=== PATIENT | female | born 1930 | race Caucasian/White ===

== ENCOUNTER 2017-02-11 12:28 | Emergency (ER) | payer MEDICARE, OTHER ==
[2017-02-11] MEDS ORDERED: HYDROCODONE/ACETAMINOPHEN 5-325 MG TABLET PO ONE (13:11)
--- NOTE | 2017-02-11 13:15 | ER Document Report ---
ED Medical Screen (RME) - General Chief Complaint: Rectal Bleeding Stated Complaint: RECTAL BLEEDING Mode of Arrival: Ambulatory Information source: Patient Notes: 86-year-old female history of colon issues with recent stomach resection secondary to cancer presents with complaints of right lower right upper quadrant abdominal pain associated with bright red blood. Patient notes symptoms have been ongoing for 3 days Denies any rectal pain I have greeted and performed a rapid initial assessment of this patient. A comprehensive ED assessment and evaluation of the patient, analysis of test results and completion of the medical decision making process will be conducted by additional ED providers. PHYSICAL EXAMINATION: GENERAL: Well-appearing, well-nourished and in no acute distress. HEAD: Atraumatic, normocephalic. EYES: Pupils equal round extraocular movements intact, conjunctiva are normal. ENT: Nares patent NECK: Normal range of motion LUNGS: No respiratory distress Musculoskeletal: Normal range of motion abdomen soft mild tenderness right lower quadrant NEUROLOGICAL: Normal speech, normal gait. PSYCH: Normal mood, normal affect. SKIN: Warm, Dry, normal turgor, no rashes or lesions noted. TRAVEL OUTSIDE OF THE [place] IN LAST 30 DAYS: No - Related Data Allergies/Adverse Reactions: prednisone Allergy (Severe, Verified 02/11/17 12:57) TOO MUCH MESSED UP HEART aspirin Allergy (Intermediate, Verified 02/11/17 12:57) "stomach ulcers" morphine [Morphine] Allergy (Mild, Verified 02/11/17 12:57) VOMITING Sulfa (Sulfonamide Antibiotics) Allergy (Mild, Verified 02/11/17 12:57) Swelling diltiazem [From Cardizem] Adverse Reaction (Intermediate, Verified 02/11/17 12: 57) MADE FEEL BAD Past Medical History - Past Medical History Cardiac Medical History: Reports: Hx Hypercholesterolemia Denies: Hx Coronary Artery Disease, Hx Heart Attack, Hx Hypertension Pulmonary Medical History: Reports: Hx Asthma, Hx Bronchitis, Hx COPD, Hx Pneumonia Denies: Hx Tuberculosis Neurological Medical History: Denies: Hx Cerebrovascular Accident, Hx Seizures Renal/ Medical History: Denies: Hx Peritoneal Dialysis GI Medical History: Reports: Hx Ulcer - duodenal ulcer. 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 Denies: Hx Bowel Surgery, Hx Section, Hx Colostomy, Hx Coronary Artery Bypass Graft, Hx Gastric Bypass Surgery, Hx Herniorrhaphy, Hx Mastectomy, Hx Open Heart Surgery, Hx Pacemaker, Hx Tonsillectomy, Hx Tubal Ligation - Immunizations Hx Diphtheria, Pertussis, Tetanus Vaccination: No - unknown Physical Exam - Vital signs Vitals: Temp Pulse Resp BP Pulse Ox 97.7 F 83 20 153/55 H 94 02/11/17 12:32 02/11/17 12:32 02/11/17 12:32 02/11/17 12:32 02/11/17 12:32 Course - Vital Signs Vital signs: Temp Pulse Resp BP Pulse Ox 97.7 F 83 20 153/55 H 94 02/11/17 12:32 02/11/17 12:32 02/11/17 12:32 02/11/17 12:32 02/11/17 12:32
[2017-02-11 14:56] LABS: ABSOLUTE EOSINOPHILS # (AUTO) 0.1 10^3/uL (0.0-0.6); ABSOLUTE LYMPHOCYTES (AUTO) 1.2 10^3/uL (0.5-4.7); ABSOLUTE MONOCYTES (AUTO) 0.7 10^3/uL (0.1-1.4); ABSOLUTE NEUT (AUTO) 3.7 10^3/uL (1.7-8.2); BASOPHILS % (AUTO) 0.4 % (0-2); EOSINOPHILS % (AUTO) 1.6 % (0-6); HEMATOCRIT 35.1 % (36.0-47.0); HGB HCT DIFFERENCE 0.9; LYMPHOCYTES % (AUTO) 20.3 % (13-45); MEAN CORPUSCULAR HEMOGLOBIN 34.7 pg (27.0-33.4); MEAN CORPUSCULAR HGB CONC 34.2 g/dL (32.0-36.0); MEAN CORPUSCULAR VOLUME 101 fl (80-97); MONOCYTES % (AUTO) 12.4 % (3-13); RED BLOOD COUNT 3.46 10^6/uL (3.72-5.28); RED CELL DISTRIBUTION WIDTH 15.9 % (11.5-14.0); SEGMENTED NEUTROPHILS % (AUTO) 65.3 % (42-78); WHITE BLOOD COUNT 5.7 10^3/uL (4.0-10.5)
[2017-02-11 15:18] LABS: ALANINE AMINOTRANSFERASE 34 U/L (9-52); ALKALINE PHOSPHATASE 134 U/L (38-126); ANION GAP 13 (5-19); ASPARTATE AMINO TRANSFERASE 36 U/L (14-36); BILIRUBIN,DIRECT 0.4 mg/dL (0.0-0.4); BILIRUBIN,TOTAL 1.8 mg/dL (0.2-1.3); BLOOD UREA NITROGEN 16 mg/dL (7-20); CALCIUM 9.7 mg/dL (8.4-10.2); CARBON DIOXIDE 25 mmol/L (22-30); CHLORIDE 102 mmol/L (98-107); CREATININE RESULT 0.71 mg/dL (0.52-1.25); GLUCOSE 99 mg/dL (75-110); POTASSIUM 4.3 mmol/L (3.6-5.0); SODIUM 140.1 mmol/L (137-145); TOTAL PROTEIN 7.8 g/dL (6.3-8.2)
--- NOTE | 2017-02-11 16:11 | ER Document Report ---
ED GI Bleed / Rectal Pain - General Chief Complaint: Rectal Bleeding Stated Complaint: RECTAL BLEEDING Mode of Arrival: Ambulatory Notes: Patient is an 86-year-old female presents emergency Department complaining of right abdominal pain with associated diarrhea and rectal bleeding. Onset has been the past couple of days that she has history of irritable bowel disease flareups on and off every couple months. Patient states that she has a history of irritable bowel disease predominantly with diarrhea she's been taking Bentyl at home. She states that she's been following with Dr. Berry and is due for colonoscopy this past week but canceled it due to nausea and she didn't want to take the prep. She is yet to follow up with him. She denies any weakness, near -syncope, syncope. She denies any dark tarry stools. States that she has blood streaked bowel movements but no evidence of clots. Any nausea or vomiting. GI is Dr. Berry PCP is Dr. Rowell for rheumatology, Dr. Barber for oncology Past medical history significant for hyperlipidemia, asthma, COPD, history of duodenal ulcer, rheumatoid arthritis, fibromyalgia, irritable bowel disease, atrial fibrillation with pacemaker Past surgical history significant for appendectomy, lumpectomy 2, cholecystectomy, hysterectomy, gastric resection for gastric CA on March or of this year in [facility] Social history denies any tobacco, alcohol or drug use. TRAVEL OUTSIDE OF THE [place] IN LAST 30 DAYS: No - Related Data Allergies/Adverse Reactions: prednisone Allergy (Severe, Verified 02/11/17 12:57) TOO MUCH MESSED UP HEART aspirin Allergy (Intermediate, Verified 02/11/17 12:57) "stomach ulcers" morphine [Morphine] Allergy (Mild, Verified 02/11/17 12:57) VOMITING Sulfa (Sulfonamide Antibiotics) Allergy (Mild, Verified 02/11/17 12:57) Swelling diltiazem [From Cardizem] Adverse Reaction (Intermediate, Verified 02/11/17 12: 57) MADE FEEL BAD Past Medical History - General Information source: Patient - Social History Smoking Status: Never Smoker Chew tobacco use (# tins/day): No Frequency of alcohol use: None Drug Abuse: None Family History: None Patient has suicidal ideation: No Patient has homicidal ideation: No - Past Medical History Cardiac Medical History: Reports: Hx Hypercholesterolemia Denies: Hx Coronary Artery Disease, Hx Heart Attack, Hx Hypertension Pulmonary Medical History: Reports: Hx Asthma, Hx Bronchitis, Hx COPD, Hx Pneumonia Denies: Hx Tuberculosis Neurological Medical History: Denies: Hx Cerebrovascular Accident, Hx Seizures Renal/ Medical History: Denies: Hx Peritoneal Dialysis GI Medical History: Reports: Hx Ulcer - duodenal ulcer. 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 Denies: Hx Bowel Surgery, Hx Section , Hx Colostomy, Hx Coronary Artery Bypass Graft, Hx Gastric Bypass Surgery, Hx Herniorrhaphy, Hx Mastectomy, Hx Open Heart Surgery, Hx Pacemaker, Hx Tonsillectomy, Hx Tubal Ligation - Immunizations Hx Diphtheria, Pertussis, Tetanus Vaccination: No - unknown Hx Pneumococcal Vaccination: 11/16/08 Review of Systems - Review of Systems Constitutional: No symptoms reported EENT: No symptoms reported Cardiovascular: No symptoms reported Respiratory: No symptoms reported Gastrointestinal: See HPI -: Yes All other systems reviewed and negative Physical Exam - Vital signs Vitals: Temp Pulse Resp BP Pulse Ox 97.7 F 83 20 153/55 H 94 02/11/17 12:32 02/11/17 12:32 02/11/17 12:32 02/11/17 12:32 02/11/17 12:32 - Notes Notes: PHYSICAL EXAM GENERAL: Alert, interacts well. HEAD: Normocephalic, atraumatic. EYES: Pupils equal, round, and reactive to light. Extraocular movements intact. ENT: Oral mucosa moist, tongue midline. NECK: Full range of motion. Supple. Trachea midline. LUNGS: Clear to auscultation bilaterally, no wheezes, rales, or rhonchi. No respiratory distress. HEART: Regular rate and rhythm. No murmurs, gallops, or rubs. ABDOMEN: Soft, nondistended, nontender. No guarding, rebound, or rigidity.. Bowel sounds present in all 4 quadrants. Rectal: No evidence of anal fissure, external hemorrhoids. On digital clinic exam no evidence of internal hemorrhoids, blood. EXTREMITIES: Moves all 4 extremities spontaneously. No edema, radial and dorsalis pedis pulses 2/4 bilaterally. No cyanosis. NEUROLOGICAL: Alert and oriented x4. Normal speech. PSYCH: Normal affect, normal mood. SKIN: Warm, dry, normal turgor. No rashes or lesions noted. Course - Re-evaluation Re-evalutation: 02/11/17 16:16 Patient is a 86-year-old female who is hemodynamically stable, no acute distress and afebrile. No evidence of blood loss anemia, leukocytosis on CBC. No evidence of electrode abnormalities, abnormal pancreas, renal, hepatic function. she is tolerating by mouth without any difficulty. Discussed with patient to discharge home and follow-up with Dr. Berry was coming week for her colonoscopy. - Vital Signs Vital signs: Temp Pulse Resp BP Pulse Ox 97.7 F 83 21 H 147/62 H 95 02/11/17 12:32 02/11/17 12:32 02/11/17 15:11 02/11/17 15:11 02/11/17 15:11 - Laboratory Result Diagrams: 02/11/17 14:12 02/11/17 14:12 Laboratory results interpreted by me: 02/11/17 02/11/17 14:12 14:12 RBC 3.46 L Hct 35.1 L MCV 101 H MCH 34.7 H RDW 15.9 H Plt Count 102 L Total Bilirubin 1.8 H Alkaline Phosphatase 134 H Discharge - Discharge Clinical Impression: Irritable bowel disease Qualifiers: Irritable bowel syndrome type: with diarrhea Qualified Code(s): K58.0 - Irritable bowel syndrome with diarrhea Condition: Good Disposition: HOME, SELF-CARE Additional Instructions: you are having an acute flare of your irritable bowel disease. You need to follow up with your multimedia services coordinator for your recommended colonoscopy ABDOMINAL PAIN: There are many causes of abdominal pain. Pain can mean a serious problem requiring surgery (such as appendicitis). It can also be an innocent problem that goes away on its own (such as a viral infection). Often, time must pass to determine the cause of pain. The physician does not feel that hospitalization is necessary, at present. Things may change within the next 24 hours. Call the doctor or come back for re- examination if any problems occur, such as: (1) Pain that becomes more severe, steady, or becomes concentrated in one specific area. Also, pain that is more severe with movement or coughing. (2) Vomiting that persists or becomes more frequent. (3) Blood in the vomitus, urine, or bowel movements. Blood in the stool may have a tarry or black appearance. (4) Shaking chills or fever greater than 100 degrees F. (5) The abdomen becomes more distended or swollen. (6) Bowel movements cease. (7) Failure to improve as expected. NORMAL EXAM AND WORKUP: At this time, your examination and workup show no significant abnormality. No significant abnormal physical findings are noted. All laboratory, EKG, and imaging (x-ray, CT scans, ultrasound) studies that were ordered show no significant abnormality. Although your examination and all studies that were ordered showed no significant abnormal finding, there are no examinations and no studies that are 100% accurate. There is always the possibility that some abnormality could exist and not be detected with physical examination or within the limits and capabilities of laboratory and other studies. You should return or follow up as you were instructed on your visit today for further evaluation if your symptoms do not resolve. ANTISPASMODICS: You have been given a prescription for an antispasmodic medicine. This type of drug is used to decrease cramping and pain in the intestines. It is also used to decrease secretion of internal fluids (such as stomach acid in ulcer disease or pancreatic juice in pancreas disease). This medicine may cause drowsiness, especially with the first dose. Do not operate machinery or drive until all side effects have resolved. Do not combine with alcohol. Other common side effects include dry mouth and eyes. In older persons, antispasmodics can occasionally cause urinary retention, constipation, or trouble focusing the eyes. Glaucoma may be worsened by this medicine. ORAL NARCOTIC MEDICATION: You have been given a prescription for pain control. This medication is a narcotic. It's best taken with food, as nausea can result if taken on an empty stomach. Don't operate machinery or drive within six hours of taking this medication. Do not combine this medicine with alcohol, or with any medication which can cause sedation (such as cold tablets or sleeping pills) unless you get permission from the physician. Narcotics tend to cause constipation. If possible, drink plenty of fluids and eat a diet high in fiber and fruits. Please be aware that prescription narcotics also have the potential for abuse. People become addicted to these medications because of the general sense of wellbeing that they induce. This feeling along with a significant reduction in tension, anxiety, and aggression provides a stimulating seductive quality to these drugs. Once your pain is under control, we encourage you to discard your unused narcotics. FOLLOW-UP CARE: If you have been referred to a physician for follow-up care, call the physician s office for an appointment as you were instructed or within the next two days. If you experience worsening or a significant change in your symptoms, notify the physician immediately or return to the Emergency Department at any time for re-evaluation. Prescriptions: Loperamide HCl [Loperamide] 2 mg PO Q6HP PRN #20 tablet PRN Reason: Ondansetron [Zofran Odt 4 mg Tablet] 1 - 2 tab PO Q4H PRN #15 tab.rapdis PRN Reason: For Nausea/Vomiting Referrals: JOSE LUIS BARBER MD [Primary Care Provider] - Follow up as needed ADISY GRAVES MD [ACTIVE STAFF] - Follow up in 3-5 days
[2017-02-11] MEDS ORDERED: LOPERAMIDE HCL 2 MG CAPSULE PO ONE (16:13)
[2017-02-11 16:52] VITALS: BP 141/64
== END 2017-02-11 16:51 | disposition home or self-care (01) ==
LOC: ER 12:28
DX: K58.0 Irritable bowel syndrome with diarrhea (principal); K62.5 Hemorrhage of anus and rectum; R10.9 Unspecified abdominal pain
CPT/HCPCS: 99283; 86900; 86901; 36415; 86850; 85025; 82272; 80053; A9270

== ENCOUNTER → 2017-02-24 | Outpatient (CLI) | payer MEDICARE, OTHER | LOC: RAD 15:09 | PROVIDERS: ATTEND Specialist | DX: C7A.094 Malignant carcinoid tumor of the foregut, unspecified (principal) | CPT/HCPCS: 78815; A9552 ==

== ENCOUNTER 2017-10-01 12:47 | Inpatient (IN) | payer MEDICARE, OTHER ==
[2017-10-01 14:08] LABS: ABSOLUTE EOSINOPHILS # (AUTO) 0.2 10^3/uL (0.0-0.6); ABSOLUTE LYMPHOCYTES (AUTO) 0.8 10^3/uL (0.5-4.7); ABSOLUTE MONOCYTES (AUTO) 0.6 10^3/uL (0.1-1.4); ABSOLUTE NEUT (AUTO) 3.5 10^3/uL (1.7-8.2); BASOPHILS % (AUTO) 0.8 % (0-2); LYMPHOCYTES % (AUTO) 16.2 % (13-45); MEAN CORPUSCULAR HEMOGLOBIN 36.6 pg (27.0-33.4); MEAN CORPUSCULAR HGB CONC 34.5 g/dL (32.0-36.0); MEAN CORPUSCULAR VOLUME 106 fl (80-97); MONOCYTES % (AUTO) 10.9 % (3-13); RED BLOOD COUNT 2.73 10^6/uL (3.72-5.28); RED CELL DISTRIBUTION WIDTH 14.3 % (11.5-14.0); SEGMENTED NEUTROPHILS % (AUTO) 68.1 % (42-78); WHITE BLOOD COUNT 5.1 10^3/uL (4.0-10.5)
[2017-10-01 14:23] LABS: ALANINE AMINOTRANSFERASE 35 U/L (9-52); ALBUMIN 3.1 g/dL (3.5-5.0); ALKALINE PHOSPHATASE 100 U/L (38-126); ANION GAP 9 (5-19); ASPARTATE AMINO TRANSFERASE 38 U/L (14-36); BILIRUBIN,DIRECT 0.3 mg/dL (0.0-0.4); BILIRUBIN,TOTAL 1.9 mg/dL (0.2-1.3); BLOOD UREA NITROGEN 14 mg/dL (7-20); CALCIUM 8.4 mg/dL (8.4-10.2); CARBON DIOXIDE 24 mmol/L (22-30); CHLORIDE 103 mmol/L (98-107); CREATINE KINASE 156 U/L (30-135); CREATININE RESULT 0.62 mg/dL (0.52-1.25); GLUCOSE 158 mg/dL (75-110); POTASSIUM 3.8 mmol/L (3.6-5.0); SODIUM 136.1 mmol/L (137-145); TOTAL PROTEIN 6.2 g/dL (6.3-8.2)
[2017-10-01 14:35] LABS: CREATINE KINASE MB 1.51 ng/mL (<4.55); TROPONIN I 0.019 ng/mL
--- NOTE | 2017-10-01 14:50 | ER Document Report ---
ED General - General Chief Complaint: General Weakness Stated Complaint: DIZZINESS Time Seen by Provider: 10/01/17 14:14 Mode of Arrival: Ambulatory Information source: Patient Notes: 86-year-old female presents with one-week duration of shortness of breath on exertion. Patient notes that her bilateral lower feet and ankles have been swollen. She denies any chest pain she denies any similar episodes in the past. Patient notes for the past 2-3 years she has been sleeping on 3 pillows at a time. Patient notes she just saw her arborist 11 days prior and was told that everything looks fine. She does have a pacemaker. TRAVEL OUTSIDE OF THE [place] IN LAST 30 DAYS: No - HPI Onset: Last week Onset/Duration: Persistent Quality of pain: No pain Severity: Mild Pain Level: Denies Associated symptoms: Leg swelling, Shortness of breath Exacerbated by: Supine, Walking Relieved by: Denies Similar symptoms previously: No Recently seen / treated by doctor: Yes - Related Data Allergies/Adverse Reactions: prednisone Allergy (Severe, Verified 10/01/17 12:48) TOO MUCH MESSED UP HEART aspirin Allergy (Intermediate, Verified 10/01/17 12:48) "stomach ulcers" morphine [Morphine] Allergy (Mild, Verified 10/01/17 12:48) VOMITING Sulfa (Sulfonamide Antibiotics) Allergy (Mild, Verified 10/01/17 12:48) Swelling diltiazem [From Cardizem] Adverse Reaction (Intermediate, Verified 10/01/17 12: 48) MADE FEEL BAD Home Medications: Current Home Medications Ergocalciferol (Vitamin D2) [Drisdol 50,000 Unit (1.25MG) Capsule] 50,000 unit PO .[id number] 10/01/17 [History] Folic Acid [Folvite 1 mg Tablet] 1 mg PO DAILY 10/01/17 [History] Methotrexate Sodium [Methotrexate] 2.5 mg PO MOTU@1000,1800 10/01/17 [History] Past Medical History - Social History Smoking Status: Never Smoker Cigarette use (# per day): No Chew tobacco use (# tins/day): No Smoking Education Provided: No Frequency of alcohol use: None Drug Abuse: None Family History: None Patient has suicidal ideation: No Patient has homicidal ideation: No - Past Medical History Cardiac Medical History: Reports: Hx Hypercholesterolemia Denies: Hx Coronary Artery Disease, Hx Heart Attack, Hx Hypertension Pulmonary Medical History: Reports: Hx Asthma, Hx Bronchitis, Hx COPD, Hx Pneumonia Denies: Hx Tuberculosis Neurological Medical History: Denies: Hx Cerebrovascular Accident, Hx Seizures Renal/ Medical History: Denies: Hx Peritoneal Dialysis GI Medical History: Reports: Hx Ulcer - duodenal ulcer. 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 Denies: Hx Bowel Surgery, Hx Section , Hx Colostomy, Hx Coronary Artery Bypass Graft, Hx Gastric Bypass Surgery, Hx Herniorrhaphy, Hx Mastectomy, Hx Open Heart Surgery, Hx Pacemaker, Hx Tonsillectomy, Hx Tubal Ligation - Immunizations Hx Diphtheria, Pertussis, Tetanus Vaccination: No - unknown Hx Pneumococcal Vaccination: 11/16/08 Review of Systems - Review of Systems Notes: REVIEW OF SYSTEMS: CONSTITUTIONAL : Denies fever, chills, or sweats. Denies recent illness. EENT: Denies eye, ear, throat, or mouth pain or symptoms. Denies nasal or sinus congestion or discharge. Denies throat, tongue, or mouth swelling or difficulty swallowing. CARDIOVASCULAR: Denies chest pain. Denies palpitations or racing or irregular heart beat. His lower extremity edema RESPIRATORY: Admits shortness of breath GASTROINTESTINAL: Admits to chronic abdominal pain GENITOURINARY: Denies difficulty urinating, painful urination, burning, frequency, blood in urine, or discharge. FEMALE GENITOURINARY: Denies vaginal bleeding, heavy or abnormal periods, irregular periods. Denies vaginal discharge or odor. MUSCULOSKELETAL: Admits bilateral lower extremity edema SKIN: Denies rash, lesions or sores. HEMATOLOGIC : Denies easy bruising or bleeding. LYMPHATIC: Denies swollen, enlarged glands. NEUROLOGICAL: Denies confusion or altered mental status. Denies passing out or loss of consciousness. Denies dizziness or lightheadedness. Denies headache. Denies weakness or paralysis or loss of use of either side. Denies problems with gait or speech. Denies sensory loss, numbness, or tingling. Denies seizures. PSYCHIATRIC: Denies anxiety or stress. Denies depression, suicidal ideation, or homicidal ideation. ALL OTHER SYSTEMS REVIEWED AND NEGATIVE. PHYSICAL EXAMINATION: GENERAL: Well-appearing, well-nourished and in no acute distress. HEAD: Atraumatic, normocephalic. EYES: Pupils equal round and reactive to light, extraocular movements intact, conjunctiva are normal. ENT: Nares patent, oropharynx clear without exudates. Moist mucous membranes. NECK: Normal range of motion, supple without lymphadenopathy LUNGS: Breath sounds clear to auscultation bilaterally and equal. No wheezes rales or rhonchi. HEART: Regular rate and rhythm without murmurs ABDOMEN: Soft, nontender, nondistended abdomen. No guarding, no rebound. No masses appreciated. Female : deferred Musculoskeletal: Bilateral +2 pitting edema of the ankles NEUROLOGICAL: Cranial nerves grossly intact. Normal speech, normal gait. Normal sensory, motor exams PSYCH: Normal mood, normal affect. SKIN: Warm, Dry, normal turgor, no rashes or lesions noted. Dictation was performed using [employer] voice recognition software Physical Exam - Vital signs Vitals: Resp 22 H 10/01/17 13:00 Course - Re-evaluation Re-evalutation: 10/01/17 16:58 Patient's imaging and presentation is consistent with congestive heart failure with fluid overload. She is given Lasix will be admitted given that she becomes hypoxic when she ambulates down to 89%. Patient otherwise is in no distress at rest - Vital Signs Vital signs: Temp Pulse Resp BP Pulse Ox 97.6 F 96 18 150/64 H 95 10/01/17 13:10 10/01/17 13:10 10/01/17 16:33 10/01/17 16:33 10/01/17 16:33 - Laboratory Result Diagrams: 10/01/17 13:51 10/01/17 13:51 Laboratory results interpreted by me: 10/01/17 10/01/17 10/01/17 13:51 13:51 14:53 RBC 2.73 L Hgb 10.0 L Hct 29.0 L MCV 106 H MCH 36.6 H RDW 14.3 H Plt Count 82 L Sodium 136.1 L Glucose 158 H Total Bilirubin 1.9 H AST 38 H Creatine Kinase 156 H Total Protein 6.2 L Albumin 3.1 L Urine Glucose (UA) 50 H Urine Blood SMALL H - Diagnostic Test Radiology reviewed: Image reviewed, Reports reviewed - Fluid overload - EKG Interpretation by Me EKG shows normal: Sinus rhythm, [place], Intervals, QRS Complexes Discharge - Discharge Clinical Impression: Hypoxemia Acute exacerbation of CHF (congestive heart failure) Qualifiers: Congestive heart failure type: combined Qualified Code(s): I50.43 - Acute on chronic combined systolic (congestive) and diastolic (congestive) heart failure Condition: Stable Disposition: ADMITTED OBSERVATION Admitting Provider: Hospitalist Unit Admitted: Telemetry
[2017-10-01 15:14] LABS: APPEARANCE,URINE CLEAR; BILIRUBIN,URINE NEGATIVE (NEGATIVE); GLUCOSE, URINE 50 mg/dL (NEGATIVE); KETONES,URINE NEGATIVE (NEGATIVE); LEUKOCYTE ESTERASE,URINE NEGATIVE (NEGATIVE); NITRITE,URINE NEGATIVE (NEGATIVE); PROTEIN,URINE NEGATIVE (NEGATIVE); URINE SPECIFIC GRAVITY 1.009; UROBILINOGEN,URINE NEGATIVE mg/dL (<2.0)
--- NOTE | 2017-10-01 15:49 | RADIOLOGY REPORT (SQ) ---
EXAM DESCRIPTION: CHEST PA/LAT COMPLETED DATE/TIME: 10/01/2017 3:23 pm REASON FOR STUDY: peripheral edema, sob COMPARISON: PET-CT 02/24/2017 AP chest 02/11/2014 EXAM PARAMETERS: NUMBER OF VIEWS: two views TECHNIQUE: Digital Frontal and Lateral radiographic views of the chest acquired. RADIATION DOSE: NA LIMITATIONS: none FINDINGS: LUNGS AND PLEURA: Pulmonary vascular congestion is present with mild interstitial edema. Trace bilateral pleural effusions. No dense consolidation worrisome for pneumonia. No pneumothorax. MEDIASTINUM AND HILAR STRUCTURES: No masses or contour abnormalities. HEART AND VASCULAR STRUCTURES: Mild cardiomegaly BONES: Osteoporotic, no acute findings HARDWARE: Left-sided dual lead pacemaker OTHER: No other significant finding. IMPRESSION: Fluid overload or congestive failure with pulmonary vascular congestion, interstitial ed hitesh and trace bilateral pleural effusions TECHNICAL DOCUMENTATION: JOB ID: [id number] [employer]- All Rights Reserved
[2017-10-01] MEDS ORDERED: FUROSEMIDE INJ/PF 40 MG/4 ML SDV IV ONE ×2 (15:53→21:45)
[2017-10-01] MEDS ORDERED: IPRATROPIUM/ALBUTEROL 0.5-2.5 MG/3 ML AMPUL NEB PRN (18:02)
[2017-10-01] MEDS ORDERED: ONDANSETRON HCL INJ/PF 4 MG/2 ML SDV IV PRN (18:02)
--- NOTE | 2017-10-01 18:27 | PDOC H&P ---
History of Present Illness Admission Date/PCP: 10/01/17 16:30 JOSE LUIS BARBER MD History of Present Illness: BARTOLO DANIEL is a 86 year old white female with a past medical history significant for rheumatoid arthritis on chronic methotrexate since 1988, atrial fibrillation status post pacemaker placement last seen by Dr. Corona on September 20 who presents to the service with complaints of lower extremity swelling. Patient has had decreased energy over the last 3 days. This is been accompanied by increased ankle swelling. The patient states that she tried elevating her legs and that helped slightly. She also developed shortness of breath with exertion. She denies any chest pain and has 3 pillow orthopnea. She says that she has been sleeping on 3 pillows for years, however. She denies any nausea, vomiting, fever. She states that she last saw Dr. Corona September [address] Corona told her that her heart looked good. It sounds as though she had a pacemaker check at that time. In the ER she had a chest x-ray that showed bilateral pleural effusions. She was given 1 dose of Lasix at 40 mg. BNP was 360. Currently the patient feels occasionally winded just at rest in bed. Past Medical History Cardiac Medical History: Reports: Atrial Fibrillation, Hyperlipidema Pulmonary Medical History: Reports: Asthma, Bronchitis, Chronic Obstructive Pulmonary Disease (COPD), Pneumonia Malignancy History Note: Diagnosis of carcinoid tumor in 2013. Diagnosis of stomach cancer in 2017. GI Medical History: Reports: Other - Carcinoid tumor 2 Musculoskeltal Medical History: Reports: Arthritis - rhematoid arthritis, Fibromyalgia Past Surgical History Past Surgical History: Reports: Appendectomy, Cholecystectomy, Hysterectomy, Pacemaker, Other - Skin cancer removal on the nose and chin. ROXANNA/BSO. Partial gastrectomy Social History Information Source: Patient Smoking Status: Never Smoker Frequency of Alcohol Use: None Hx Recreational Drug Use: No Hx Prescription Drug Abuse: No Family History Family History: None, Malignancy - Patient's mother and her twin sister had breast cancer. Dad had colon cancer. Brother had non-Hodgkin's Parental Family History Reviewed: Yes Children Family History Reviewed: Yes Sibling(s) Family History Reviewed.: Yes Medication/Allergy Home Medications: Ergocalciferol (Vitamin D2) [Drisdol 50,000 Unit (1.25MG) Capsule] 50,000 unit PO .[id number] 10/01/17 Folic Acid [Folvite 1 mg Tablet] 1 mg PO DAILY 10/01/17 Methotrexate Sodium [Methotrexate] 2.5 mg PO MOTU@1000,1800 10/01/17 Allergies/Adverse Reactions: prednisone Allergy (Severe, Verified 10/01/17 12:48) TOO MUCH MESSED UP HEART aspirin Allergy (Intermediate, Verified 10/01/17 12:48) "stomach ulcers" morphine [Morphine] Allergy (Mild, Verified 10/01/17 12:48) VOMITING Sulfa (Sulfonamide Antibiotics) Allergy (Mild, Verified 10/01/17 12:48) Swelling diltiazem [From Cardizem] Adverse Reaction (Intermediate, Verified 10/01/17 12: 48) MADE FEEL BAD Review of Systems Review of Systems: Review of systems is positive as that already listed in the HPI. In addition to this the patient admits to episodes of epistaxis that seem to happen on a daily basis. She is being followed by to ENTs and has an appointment with her [facility] in [place]. She also admits to diarrhea and colon spasms as well as rheumatoid arthritic changes. She denies nausea, vomiting, constipation, fever, chills, blood in the stool, blood in the urine, vomiting blood. The patient occasionally coughs up blood due to epistaxis. She denies abdominal pain other than that related with her spasms. She denies any weight changes. Physical Exam Vital Signs: Temp Pulse Resp BP Pulse Ox 97.6 F 96 18 150/64 H 95 10/01/17 13:10 10/01/17 13:10 10/01/17 16:33 10/01/17 16:33 10/01/17 16:33 GENERAL: This is a well-developed and nourished appearing elderly white female resting in bed beginning dinner. HEENT: Normocephalic atraumatic. Trachea is midline. Sclera are anicteric. Moist mucous membranes. HEART: Regular rate and rhythm. Occasional pacer spikes on the telemetry. No murmurs rubs or gallops. LUNGS: Bibasilar crackles with equal rise and fall of the chest. ABDOMEN: Soft, nontender, nondistended with normoactive bowel sounds. Ventral hernia present. EXTREMETIES: No clubbing, cyanosis. 2+ pitting edema extending from the feet and ankles all the way up to the shins. 2+ peripheral pulses bilaterally. Strength is 5 out of 5 in the upper and lower extremities bilaterally. NEURO: Awake, alert and oriented 3. Cranial nerves II through XII are specifically intact. Results Impressions: Chest X-Ray 10/01/17 14:47 IMPRESSION: Fluid overload or congestive failure with pulmonary vascular congestion, interstitial edema and trace bilateral pleural effusions Assessment & Plan - Diagnosis (1) Acute exacerbation of CHF (congestive heart failure) Qualifiers: Congestive heart failure type: combined Qualified Code(s): I50.43 - Acute on chronic combined systolic (congestive) and diastolic (congestive) heart failure Is this a current diagnosis for this admission?: Yes Plan: I suspect that the patient has combined acute systolic and diastolic heart failure. Will check cardiac echo. She is gotten 1 dose of Lasix already in the emergency room. Strict I's and O's and limited salt in the diet. The patient recently saw Dr. Corona. We will try and obtain her most recent echocardiogram from there. Continue Lasix 40 mg IV twice daily. (2) Rheumatoid arthritis Is this a current diagnosis for this admission?: Yes Plan: Continue methotrexate and folic acid. (3) Chronic atrial fibrillation Is this a current diagnosis for this admission?: Yes Plan: Patient has a pacer placed. She is not on any rate control medications. (4) Carcinoid tumor Is this a current diagnosis for this admission?: Yes Plan: Patient is due to see Dr. Quezada as an outpatient. She had been follow with Dr. Barber before. She states that she has a new tumor that cannot be safely worked up. - Time Time Spent: 50 to 70 Minutes - Inpatient Certification Based on my medical assessment, after consideration of the patient's comorbidities, presenting symptoms, or acuity I expect that the services needed warrant INPATIENT care.: Yes Medical Necessity: Need Close Monitoring Due to Risk of Patient Decompensation
[2017-10-01] MEDS ORDERED: FUROSEMIDE INJ/PF 40 MG/4 ML SDV ONE (21:29)
--- NOTE | 2017-10-01 22:54 | EKG REPORT ---
SEVERITY:- ABNORMAL ECG - SINUS RHYTHM VENTRICULAR PREMATURE COMPLEX LEFT VENTRICULAR HYPERTROPHY BORDERLINE PROLONGED QT INTERVAL : Confirmed by: Leeanne Khoury 01-Oct-2017 22:53:22
[2017-10-02] MEDS ORDERED: HYDROMORPHONE HCL INJ/PF 2 MG/ML AMPULE IV ONE (01:30)
[2017-10-02 06:01] LABS: ABSOLUTE EOSINOPHILS # (AUTO) 0.3 10^3/uL (0.0-0.6); ABSOLUTE LYMPHOCYTES (AUTO) 1.2 10^3/uL (0.5-4.7); ABSOLUTE NEUT (AUTO) 3.8 10^3/uL (1.7-8.2); BASOPHILS % (AUTO) 0.7 % (0-2); EOSINOPHILS % (AUTO) 4.6 % (0-6); HEMATOCRIT 28.5 % (36.0-47.0); HEMOGLOBIN 10.1 g/dL (12.0-15.5); HGB HCT DIFFERENCE 1.8; LYMPHOCYTES % (AUTO) 19.3 % (13-45); MEAN CORPUSCULAR HEMOGLOBIN 37.7 pg (27.0-33.4); MEAN CORPUSCULAR HGB CONC 35.5 g/dL (32.0-36.0); MEAN CORPUSCULAR VOLUME 106 fl (80-97); MONOCYTES % (AUTO) 15.2 % (3-13); RED BLOOD COUNT 2.69 10^6/uL (3.72-5.28); RED CELL DISTRIBUTION WIDTH 14.6 % (11.5-14.0); SEGMENTED NEUTROPHILS % (AUTO) 60.2 % (42-78); WHITE BLOOD COUNT 6.2 10^3/uL (4.0-10.5)
[2017-10-02 06:22] LABS: ANION GAP 8 (5-19); BLOOD UREA NITROGEN 12 mg/dL (7-20); CALCIUM 8.9 mg/dL (8.4-10.2); CARBON DIOXIDE 27 mmol/L (22-30); CHLORIDE 101 mmol/L (98-107); CREATININE RESULT 0.59 mg/dL (0.52-1.25); GLUCOSE 82 mg/dL (75-110); MAGNESIUM 1.7 mg/dL (1.6-2.3); POTASSIUM 3.9 mmol/L (3.6-5.0); SODIUM 135.8 mmol/L (137-145)
[2017-10-02] MEDS ORDERED: ENOXAPARIN SODIUM INJ 40 MG/0.4 ML DISP.SYRIN SUBCUT SCH (10:00)
[2017-10-02] MEDS ORDERED: FUROSEMIDE INJ/PF 20 MG/2 ML SDV IV SCH (10:00)
--- NOTE | 2017-10-02 11:56 | Physician Advisory Note ---
Physician Advisor ProgressNote .: Pursuant to the plan for Baldo Martinez, I have reviewed the medical record for this patient. Physician Advisor Statement: Nice job documenting findings supporting dx of Acute on Chronic Systolic & DIastolic CHF: AGUDELO, BLE edema, BLL crackles/rales, bilat pleural effusions on CXR. Please consider documenting, if you agree: 1. Medical necessity: clinical reasons she is not safe to d/c home 10/02/17 need to be spelled out, unless she can go home. ["Breathing/fluid status not back to baseline"? "I am concerned about __"? "worsening hyponatremia"? ...] - see below 2. "Acute hyponatremia, likely due to " [CHF's intravascular volume overload?] STatus: A typical acute CHF pt should be Obs status initially, changing to Inpt , or discharging, the next day depending on response to tx, unless attending is convinced at time of H&P that pt will require more than 1 MN, and documents reasons well (such as "This pt's volume overload is so great that the chances of sufficient diuresis for safe d/c being possible in just 1 day/night despite maximal tx are nearly zero", or ...). In this case, 86yo Medicare pt with acute on chronic diastolic or combined CHF, BLE pitting edema up her shins, chronic Afib, underlying COPD/asthma & anemia, hypoxemia (but no mention of resp distress/increased work of breathing to indicate dx of Ac Resp fAilure) down to 89% with ambulation in ED, tachycardic & tachypneic initially - was started on bid IV Lasix after a 1st dose about 15: 53 in ED. She needed a 2nd 'now' dose of IV Lasix by the overnight covering physician at 21:29. After 1MN of hospital care, pt's hyponatremia appears worse. She continues to have intermittent mild tachycardia. This reviewer, without benefit of 10/02/17 progress note yet, suspects that this pt will likely require a 2nd MN of hospital care before she can be sufficiently stabilized for safe d/c home, in which case Inpatient is appropriate after all. If this suspicion is incorrect, the status should be Obs. CK
[2017-10-02] MEDS ORDERED: IPRATROPIUM/ALBUTEROL 0.5-2.5 MG/3 ML AMPUL NEB PRN (12:30)
[2017-10-02] MEDS ORDERED: ONDANSETRON HCL INJ/PF 4 MG/2 ML SDV IV PRN (12:30)
--- NOTE | 2017-10-02 15:05 | PDOC PROGRESS REPORT ---
Subjective Progress Note for:: 10/02/17 Reason For Visit: CHF EXACERBATION Physical Exam Vital Signs: Temp Pulse Resp BP Pulse Ox 98.5 F 97 16 130/49 H 93 10/02/17 07:58 10/02/17 07:58 10/02/17 07:58 10/02/17 07:58 10/02/17 07:58 Intake & Output 10/01/17 10/02/17 10/03/17 06:59 06:59 06:59 Intake Total 595 Output Total 450 Balance 145 Weight 69.3 kg GENERAL: This is a well-developed and nourished appearing elderly white female resting in bed in no acute distress. HEART: Regular rate and rhythm. Occasional pacer spikes on the telemetry. No murmurs rubs or gallops. LUNGS: Rare bibasilar crackles with equal rise and fall of the chest. ABDOMEN: Soft, nontender, nondistended with normoactive bowel sounds. Ventral hernia present. EXTREMETIES: No clubbing, cyanosis. 1 + pitting edema extending from the feet and ankles all the way up to the shins. 2+ peripheral pulses bilaterally. NEURO: Awake, alert and oriented 3. Cranial nerves II through XII are specifically intact. Results Laboratory Results: 10/02/17 04:43 10/02/17 04:43 10/02/17 10/02/17 04:43 04:43 WBC 6.2 RBC 2.69 L Hgb 10.1 L Hct 28.5 L MCV 106 H MCH 37.7 H MCHC 35.5 RDW 14.6 H Plt Count 88 L Seg Neutrophils % 60.2 Lymphocytes % 19.3 Monocytes % 15.2 H Eosinophils % 4.6 Basophils % 0.7 Absolute Neutrophils 3.8 Absolute Lymphocytes 1.2 Absolute Monocytes 1.0 Absolute Eosinophils 0.3 Absolute Basophils 0.0 Sodium 135.8 L Potassium 3.9 Chloride 101 Carbon Dioxide 27 Anion Gap 8 BUN 12 Creatinine 0.59 Est GFR ( Amer) > 60 Est GFR (Non-Af Amer) > 60 Glucose 82 Calcium 8.9 Magnesium 1.7 Impressions: Chest X-Ray 10/01/17 14:47 IMPRESSION: Fluid overload or congestive failure with pulmonary vascular congestion, interstitial edema and trace bilateral pleural effusions Assessment & Plan - Diagnosis (1) Acute exacerbation of CHF (congestive heart failure) Qualifiers: Congestive heart failure type: combined Qualified Code(s): I50.43 - Acute on chronic combined systolic (congestive) and diastolic (congestive) heart failure Is this a current diagnosis for this admission?: Yes Plan: I suspect that the patient has combined acute systolic and diastolic heart failure. Will check cardiac echo. Continue diuresis. The patient had bilateral pleural effusions on admission. She sounds much better today. Her lower extremity edema is also better today. At this point the patient is not yet back to baseline. This will be a new diagnosis for her and she needs continued IV diuresis. She still has some AGUDELO. Continue strict I's and O's and limited salt in the diet. Continue Lasix 40 mg IV twice daily. (2) Rheumatoid arthritis Is this a current diagnosis for this admission?: Yes Plan: The patient will like to wait until she is discharged to continue her methotrexate and folic acid. (3) Chronic atrial fibrillation Is this a current diagnosis for this admission?: Yes Plan: Patient has a pacer placed. She is not on any rate control medications. (4) Hyponatremia Is this a current diagnosis for this admission?: Yes Plan: This is transient and is resolved. - Time Time Spent with patient: 15-24 minutes Anticipated discharge: Home Within: within 24 hours - Inpatient Certification Medical Necessity: Need Close Monitoring Due to Risk of Patient Decompensation
[2017-10-02] MEDS ORDERED: METOPROLOL TARTRATE PF/INJ 5 MG/5 ML SDV IV ONE (17:18)
--- NOTE | 2017-10-02 18:34 | Progress Note ---
Provider Note Provider Note: Notified by the nursing staff that the patient looks to be in A. fib with RVR and a rate at 160. Her pacemaker is not really capturing. She just had it checked with Dr. Corona on the sixth. Want to give her a dose of metoprolol 5 mg IV push and see if we cannot help her rate.
[2017-10-02] MEDS ORDERED: DILTIAZEM HCL/D5W 125 MG/125 ML RTUINJ IV PRN (18:36)
[2017-10-02] MEDS ORDERED: METOPROLOL TARTRATE 50 MG TABLET PO ONE (18:41)
--- NOTE | 2017-10-02 19:44 | EKG REPORT ---
SEVERITY:- ABNORMAL ECG - ATRIAL FIBRILLATION : Confirmed by: Aamir Norman MD 02-Oct-2017 19:43:43
[2017-10-02] MEDS ORDERED: DIGOXIN INJ 0.5 MG/2 ML AMPULE ONE (21:29)
[2017-10-02] MEDS ORDERED: FUROSEMIDE INJ/PF 40 MG/4 ML SDV IV SCH (22:00)
[2017-10-02] MEDS ORDERED: HEPARIN SOD (PORCINE) 1,000 UNIT/ML 10 ML VIAL IV PRN (22:01)
[2017-10-02] MEDS ORDERED: HEPARIN SODIUM,PORCINE/D5W 25,000 UNIT/250 ML RTUINJ IV PRN (22:01)
[2017-10-02] MEDS ORDERED: METOPROLOL TARTRATE PF/INJ 5 MG/5 ML SDV IV PRN (22:04)
[2017-10-02] MEDS ORDERED: METOPROLOL SUCCINATE 50 MG TAB.SR.24H PO SCH (22:15)
[2017-10-03] MEDS ORDERED: DIGOXIN 0.125 MG TABLET PO SCH (10:00)
[2017-10-03] MEDS: FOLIC ACID 1 MG TABLET PO SCH (11:04)
--- NOTE | 2017-10-03 11:28 | PDOC PROGRESS REPORT ---
Subjective Progress Note for:: 10/03/17 Subjective:: Patient was transferred to [facility]. She received a dose of digoxin last night as well as continued scheduled p.o. doses of metoprolol. The patient heart rate came down nicely with the range from 70-90. Unfortunately she did not convert to sinus rhythm and still remains in atrial fibrillation. Her pacemaker seems to be capturing now. I spoke with Aria Germain, nurse practitioner who works with Dr. Karis Corona, EP supervisor metal fabricating. The patient usually follows with Dr. Corona and apparently has been on sotalol, flecainide, metoprolol in the past. Metoprolol and flecainide were last used and discontinued in January 2017. At the time the reason listed is because of spastic colon. Dr. Corona did not seem to feel that this was likely the cause of the patient's spastic colon, but they did discontinue it in order to try and see if the patient would get any relief. The plan moving forward with that if she went back into rapid A. fib flecainide would be resumed. Her last known dose was 50 mg p.o. twice daily. The patient's pacemaker is [employer]. She states that she had a pacemaker interrogation September 20. However, Ms. Germain does not see any record of that. She readily admits that that does not mean it did not happen. She does note however that there is not any appointment that was seen in the system. At any rate we will have [employer] come and interrogate her device. Dr. Soto has been consulted in this case and this information has been shared with him. I also made the patient aware that I did get in contact with Dr. Corona office. This morning the patient states that she feels bad. She cannot really be more specific than that other than she feels weak and just not well. Reason For Visit: CHF EXACERBATION Physical Exam Vital Signs: Temp Pulse Resp BP Pulse Ox 98.8 F 70 16 123/87 H 96 10/03/17 03:38 10/03/17 10:07 10/03/17 10:07 10/03/17 03:38 10/03/17 10:07 Intake & Output 10/02/17 10/03/17 10/04/17 06:59 06:59 06:59 Intake Total 595 2514 Output Total 450 5900 Balance 145 -5963 Weight 69.3 kg 61.5 kg GENERAL: This is a well-developed and nourished appearing elderly white female resting in bed in no acute distress. HEART: irregular rhythm. 1-2/6 MARGAUX. No rubs or gallops. LUNGS: Clear with equal rise and fall of the chest. ABDOMEN: Soft, nontender, nondistended with normoactive bowel sounds. Ventral hernia present. EXTREMETIES: No clubbing, cyanosis. trace edema extending from the feet and ankles all the way up to the shins. 2+ peripheral pulses bilaterally. NEURO: Awake, alert and oriented 3. Cranial nerves II through XII are specifically intact. Results Laboratory Results: 10/02/17 04:43 10/02/17 04:43 Impressions: Chest X-Ray 10/01/17 14:47 IMPRESSION: Fluid overload or congestive failure with pulmonary vascular congestion, interstitial edema and trace bilateral pleural effusions Assessment & Plan - Diagnosis (1) Acute exacerbation of CHF (congestive heart failure) Qualifiers: Congestive heart failure type: combined Qualified Code(s): I50.43 - Acute on chronic combined systolic (congestive) and diastolic (congestive) heart failure Is this a current diagnosis for this admission?: Yes Plan: I suspect that the patient has combined acute systolic and diastolic heart failure. Continue diuresis. The patient had bilateral pleural effusions on admission. She sounds much better today. Her lower extremity edema is also better today. At this point the patient is not yet back to baseline. This will be a new diagnosis for her and she needs continued IV diuresis. She still has some AGUDELO. Continue strict I's and O's and limited salt in the diet. Change Lasix to p.o. echocardiogram has been done, however report is still pending. I suspect that the patient has been in intermittent atrial fibrillation at home and likely pushed her into heart failure. (2) Rheumatoid arthritis Is this a current diagnosis for this admission?: Yes Plan: The patient will like to wait until she is discharged to continue her methotrexate and folic acid. (3) Chronic atrial fibrillation Is this a current diagnosis for this admission?: Yes Plan: Chronic atrial fibrillation with conversion to RVR overnight. Patient has a pacer placed. She did not present on any rate control medications. Apparently her pacemaker was placed for sick sinus syndrome. Her pacemaker was not capturing yesterday. Today there are clear pacer spikes on EKG. I anticipate we will be starting flecainide after Dr. Soto has had a chance to fully evaluate the case. Her last known dose of flecainide was 50 mg p.o. twice daily. (4) Hyponatremia Is this a current diagnosis for this admission?: Yes (5) Carcinoid tumor Is this a current diagnosis for this admission?: Yes Plan: Patient is due to see Dr. Quezada as an outpatient. She had been follow with Dr. Villaseñor before. She states that she has a new tumor that cannot be safely worked up. - Time Time Spent with patient: 35 or more minutes - Inpatient Certification Medical Necessity: Need Close Monitoring Due to Risk of Patient Decompensation
[2017-10-03] MEDS ORDERED: FLECAINIDE ACETATE 100 MG TABLET PO ONE (12:30)
--- NOTE | 2017-10-03 13:39 | XCELERA REPORT ---
[address] [address] Transthoracic Echocardiogram Report Name: BARTOLO DANIEL Age: 86 yrs Gender: Female : 1930 Patient Status: Inpatient Patient Location: [address] [place] [address] Study Date: 10/02/2017 01:28 PM Height: 65 in Weight: 143 lb BSA: 1.7 m2 Procedure: A two-dimensional transthoracic echocardiogram with color flow and Doppler was performed. Study Quality: Technically suboptimal. Images were not obtained from all of the standard acoustic windows due to the limited scope of the study. The study was technically limited with all images being suboptimal in quality. Reason For Study: heart failure History: heart failure. Ordering Physician: BLAIRE BAZAN Performed By: Anabelle Berman Interpretation Summary The left ventricle is normal in size. There is normal left ventricular wall thickness. No True 2 chamber apical views obtained.Hence cannot comment on the apical and basal anterior fish, and the apical and basal inferior fish.The mid anterior and the mid inferior and the rest of the fish contract normallyLVEF is normal at 70%. Doppler measurements suggest normal left ventricular diastolic function The right ventricle is not well visualized secondary to technical limitations The left atrial size is normal. There is no evidence of mitral valve prolapse. There is no mitral valve stenosis. There is a mild amount of mitral regurgitation There is no aortic valvular vegetation. There is aortic sclerosis without aortic stenosis. There is no LVOT obstruction. No aortic regurgitation is present. There is no tricuspid stenosis. Perhaps moderate TR ( not well interrogated).Mild pulmonary hypertension.RVSP is 39 mm of Hg , with RA mean of 10. There is no pericardial effusion. MMode/2D Measurements & Calculations RVDd: 2.0 cm LVIDd: 4.3 cm FS: 47.8 % Ao root diam: 2.0 cm IVSd: 0.77 cm LVIDs: 2.3 cm EDV(Teich): 85.0 ml LVPWd: 0.84 cm ESV(Teich): 17.5 ml Ao root area: 3.1 cm2 EF(Teich): 79.4 % Doppler Measurements & Calculations MV E max danielle: MV dec slope: Ao V2 max: LV V1 max P.4 cm/sec 203.8 cm/sec 5.1 mmHg MV A max danielle: 363.8 cm/sec2 Ao max PG: LV V1 max: 69.7 cm/sec MV dec time: 16.6 mmHg 112.5 cm/sec MV E/A: 1.3 0.25 sec PA V2 max: TR max danielle: 108.5 cm/sec 270.4 cm/sec PA max PG: TR max P.3 mmHg 4.7 mmHg Left Ventricle The left ventricle is normal in size. There is normal left ventricular wall thickness. No True 2 chamber apical views obtained.Hence cannot comment on the apical and basal anterior fish, and the apical and basal inferior fish.The mid anterior and the mid inferior and the rest of the fish contract normallyLVEF is normal at 70%. Doppler measurements suggest normal left ventricular diastolic function. There is no thrombus. Right Ventricle The right ventricle is not well visualized secondary to technical limitations. Atria Right atrium not well visualized secondary to technical limitations. The left atrial size is normal. Mitral Valve There is no evidence of mitral valve prolapse. There is no vegetation seen on the mitral valve. There is no mitral valve stenosis. There is a mild amount of mitral regurgitation. Aortic Valve There is no aortic valvular vegetation. There is aortic sclerosis without aortic stenosis. There is no LVOT obstruction. No aortic regurgitation is present. Tricuspid Valve There is no tricuspid stenosis. Perhaps moderate TR ( not well interrogated).Mild pulmonary hypertension.RVSP is 39 mm of Hg , with RA mean of 10. Pulmonic Valve There is no pulmonic valvular stenosis. There is no pulmonic valvular regurgitation. Great Vessels The aortic root is normal size. Effusions There is no pericardial effusion. : BLAIRE BAZAN > Jenn Soto
--- NOTE | 2017-10-03 15:12 | EKG REPORT ---
SEVERITY:- ABNORMAL ECG - ATRIAL-PACED RHYTHM : Confirmed by: Aamir Norman MD 03-Oct-2017 15:11:06
[2017-10-03] MEDS: FUROSEMIDE 40 MG TABLET PO SCH (17:29)
--- NOTE | 2017-10-03 17:33 | Progress Note ---
Provider Note Provider Note: I spoke with Dr. Karis Corona. She called to let me know that Ms. Abdi definitely was on flecainide before. Ms. Abdi prefers not to be on any medications at all if she can avoid it. She had complaints about spastic colon and generalized fatigue and malaise while on the medications. It was subsequently noted that the patient actually had carcinoid tumor that was likely causing the symptoms. Nevertheless the medications were held. The patient was cautioned that her symptoms would likely return and that an option would be ablation. Having the ablation would make her completely pacer dependent. The patient had decided against this. Dr. Corona recommended continuing the flecainide at the current dose of 50 twice a day and metoprolol once a day with discontinuation of the digoxin. Dr. Soto agreed that the patient does not need to remain on the digoxin. These changes were made.
[2017-10-03] MEDS: FLECAINIDE ACETATE 100 MG TABLET PO SCH (21:23)
[2017-10-03] MEDS ORDERED: METOPROLOL TARTRATE 25 MG TABLET PO SCH (22:00)
--- NOTE | 2017-10-03 23:48 | CONSULTATION REPORT E ---
Consultation Report NAME: BARTOLO DANIEL : 1930 AGE: 86Y DATE: 10/03/2017 331 A TO: OSMANI SOLO M.D. FROM: BLAIRE BAZAN M.D. Requesting Physician REASON FOR CONSULTATION: Paroxysmal atrial fibrillation in a patient who is at high risk for bleeding complications and hence, not on anticoagulation. HISTORY: The patient is an 86-year-old female who states since the past 3-4 days prior to admission, she has been having generalized fatigue, and weakness and shortness of breath with exertion. Note that the patient does not feel any rapid beating of the heart. She also found that she has swelling of the legs which is bilateral and very significant and she thought the water would break in her legs. She came to the Emergency Room and was treated with Lasix and the swelling has gone down. She was also found to be in recurrence of atrial fibrillation. Note that the patient has been on flecainide and metoprolol to keep her in sinus rhythm and in the past due to sick sinus syndrome, she has also had a permanent pacemaker placement. She denies any chest pain or discomfort. After it was confirmed with Dr. Karis Corona, the patient's EP Program Manager Environmental Planning in [place], the patient was given a dose of flecainide and I was able to turn the diltiazem drip off and the patient went into atrial paced rhythm with ventricular capture and the patient had no symptoms of TIA or CVA. At present, the patient has no PND or orthopnea. There is no cough or wheezing. There is no syncope but the patient has some dizziness. PAST MEDICAL HISTORY: Positive for history of atrial fibrillation. In the past, it was supposed to be paroxysmal atrial fibrillation. 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 She has no wheezing, no diarrhea or flushing. Subsequently, she had surgery for that and the mass was removed but she had to have a second surgery. At this time, the mass was said to be cancerous. She had surgery for that and she says by recent exam, there is a lesion behind the stomach and in front of the pancreas, the etiology of which is not clear. Hence, in view of this, the patient is at high risk for anticoagulation. She has no history of hypertension. She has a history of asthma, bronchitis and COPD. She has a past history of pneumonia. There is no history of diabetes mellitus. There is no history of TIA or CVA. Past history of GI bleed, as mentioned earlier. 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 She also has a history of stomach cancer with carcinoid and stomach cancer being removed by surgery. She also has a history of rheumatoid arthritis and fibromyalgia. PAST SURGICAL HISTORY: 1. Appendectomy. 2. Cholecystectomy. 3. Hysterectomy. 4. Permanent pacemaker placement for sick sinus syndrome. 5. Skin cancer removed on the nose and chin. 6. Total abdominal hysterectomy with bilateral salpingo-oophorectomy. 7. Partial gastrectomy. SOCIAL HISTORY: She has never smoked. ADVANCED DIRECTIVE: SHE IS A FULL CODE. Her niece is the surrogate healthcare decision maker. FAMILY HISTORY: The patient's mother and a twin sister had breast cancer. Dad had colon cancer. Brother had non-Hodgkin's disease. ALLERGIES: 1. PREDNISONE. 2. ASPIRIN. 3. MORPHINE. 4. SULFA. 5. DILTIAZEM. REVIEW OF SYSTEMS: CONSTITUTIONAL: Denies any fevers, chills or rigors. Complains of generalized fatigue and weakness. HEAD: Denies any headache. History of dizziness off and on. EYES: No history of amblyopia or diplopia. No history of amaurosis fugax. EARS: No history of hearing loss. No history of tinnitus. No history of recurrent ear infections. NOSE: No history of hay fever. No history of nosebleeds. No history of nasal polyps. MOUTH: No altered taste sensation. No history ulcers in the mouth. No bleeding from the gums. THROAT: No odynophagia or dysphagia. No recurrent sore throats. SKIN: History of skin cancer with no recurrence. There is no pruritus. There is no jaundice or yellowish discoloration of the skin. There is no history of psoriasis. NECK: No swelling of the neck. No neck pain. No goiter. LUNGS: History of asthma and COPD. The patient has been exposed to second hand smoke, although she is not a smoker. This is mainly at work, she says and for a number of years. She has no history of asthma, bronchitis, and COPD. She has a past history of pneumonia. No recent symptoms of cough or sputum production. She has been having some orthopnea. CARDIAC: No history of hypertension. No history of coronary artery disease. No history of congestive heart failure but at present it seems that she might have a little bit of heart failure due to atrial fibrillation with rapid ventricular response. The patient does have a history of paroxysmal atrial fibrillation. She is not a candidate for chronic anticoagulation therapy for reasons mentioned earlier. She has no history of angina or NC. No history of syncope. History of sick sinus syndrome and had a permanent pacemaker placed. She had significant leg edema which has now gone down to trace edema after diuretics and rate control. She has now converted to atrial paced rhythm with ventricular capture. The patient is on flecainide and metoprolol. This has been confirmed after talking to Dr. Corona's Nurse Practitioner. ENDOCRINE: No history of diabetes mellitus. No history of thyroid disease. No history of polydipsia, polyuria. No history of heat or cold intolerance. METABOLIC: No history of obesity. No history of hyperlipidemia. RENAL: No history of chronic kidney disease. No history of renal failure. No history of symptoms of urinary tract infection. No hematuria, pyuria or dysuria. MUSCULOSKELETAL: History of rheumatoid arthritis, at present in remission. GASTROINTESTINAL: History of carcinoid tumor removed x2, she says and subsequently came back as cancer. She now has a lesion between the stomach and the pancreas. The lesion etiology is not clear. She has no abdominal pain. She has no history of cirrhosis. No history of jaundice. No history of fatty food intolerance. No history of altered bowel movements. Past history of GI bleed. None recently. CENTRAL NERVOUS SYSTEM: No history of TIA or CVA. No history of headaches, migraines or seizures. No history of gait imbalance. PSYCHIATRIC: No history of anxiety or depression. No history of suicidal ideation. No history of homicidal ideation. VASCULAR: No history of calf or buttock claudication. HEMATOLOGICAL: Past history of anemia. Past history of GI bleed. No bleeding diathesis or clotting disorders. The rest of the review of systems is that the patient, 3 days prior to her admission on 10/01 she had been having progressively increasing fatigue, shortness of breath, dyspnea on exertion, orthopnea, and severe leg edema but no chest pain. Unfortunately, the patient does not feel any rapid palpitations and she does not feel symptoms when she goes into atrial fibrillation. There is no syncope. MEDICATIONS: 1. She was on a Cardizem drip at 10 mg/hr which has been stopped. 2. She has been given flecainide 50 mg x1 and subsequently flecainide 50 mg p.o. q. 12 hours. 3. Folic acid 1 mg p.o. daily. 4. Lasix 40 mg p.o. b.i.d. 5. Ipratropium/albuterol 3 mL nebulizer treatment q. 8 hours p.r.n. 6. Metoprolol 5 mg IV push x1. 7. Toprol XL 25 mg p.o. daily. 8. Zofran 4 mg IV q. 6 hours p.r.n. nausea/vomiting. PHYSICAL EXAMINATION: VITAL SIGNS: The patient at present is afebrile with a temperature of 97.9 degrees Fahrenheit. Pulse is 72 beats per minute. Blood pressure 130/38. Respirations are 22 per minute. O2 sats are 94% on room air. HEENT: Head is atraumatic and normocephalic. Eyes: Pupils are equal, round, regular, reactive to light and accommodation. Extraocular movements are normal. There is no conjunctival pallor. There is no scleral icterus. Ears: Tympanic membranes are intact. External auditory canals are clear. Nose: There is no deviated nasal septum. There is no inflammation of the nasal mucous membranes. Mouth: Mucous membranes of the mouth are moist. Tongue is moist. There are no ulcers. There is no bleeding from the gums. Throat: There is no redness of the oropharynx. There are no exudates. SKIN: There is no petechia or ecchymosis. There are no skin rashes except for some red spots in the medial side of both her feet and lower part of the legs near the ankles. There is trace pedal edema. NECK: Supple. There is no JVD. Carotids are equal. There is no bruit. HEART: S1 and S2 is heard. S1 is of normal intensity at present. There is no S3 gallop. There is no S4 gallop. There is a systolic murmur at the left sternal border on the apex. There is no rub. ABDOMEN: Soft and nontender. There is no hepatosplenomegaly. Bowel sounds are well heard. EXTREMITIES: Femorals are slightly diminished. There are no femoral bruits. Leg pulses are well heard. There is trace pedal edema. There is no DVT or cellulitis. There is no cyanosis or clubbing. CENTRAL NERVOUS SYSTEM: The patient is conscious, awake, alert, and oriented x3 with no focal deficits. PSYCHIATRIC: The patient's judgment and insight are intact. Her affect is normal. DIAGNOSTICS: The patient's EKG done on 10/01 shows sinus rhythm, 1 PVC, left ventricular hypertrophy. The patient's chest x-ray done on 10/01 shows fluid overload of congestive heart failure, pulmonary vascular congestion, interstitial edema, and trace bilateral pleural effusions. The patient's EKG strips on 10/01 show sinus rhythm. The patient's EKG on 10/02 shows atrial fibrillation with rapid ventricular response. The patient's EKG done on 10/03 shows atrial pace with ventricular capture, otherwise no acute changes. The patient's EKG shows left ventricular size is normal, normal left ventricular wall thickness. No 2-chamber apical views obtained. Hence, cannot comment on the apical and basal anterior fish and the apical and basal inferior fish. The mid anterior, mid inferior, rest of LV fish contract normally. LV ejection fraction is normal at 70%. There is normal left ventricular diastolic function. There is a mild amount of mitral regurgitation. There is no mitral valve prolapse or stenosis. There is aortic sclerosis without stenosis. There is no aortic regurgitation. There is no tricuspid stenosis, perhaps moderate TR (not well interrogated), mild pulmonary hypertension. Right ventricular systolic pressure of 39 mmHg with artery mean of 10. There is no pericardial effusion. LABORATORY STUDIES: The patient's white count is 6200; hemoglobin is 10.1; hematocrit is 28.5; and platelet count is 88,000. The patient's sodium is 135.8, potassium 3.9, chloride 101, CO2 is 27, and the patient's BUN is 12, creatinine is 0.59. GFR is greater than 60, glucose is 82, her calcium is 8.9, and magnesium is 1.7. Her NT-proBNP on 10/01 is 360. The patient's troponin I is negative at 0.019. IMPRESSION: 1. Most likely heart failure with leg edema, shortness of breath, most likely secondary to paroxysmal atrial fibrillation. The patient initially, when she came in, was in sinus rhythm. 2. Recurrent atrial fibrillation now converted to paced rhythm with ventricular capture. 3. Rheumatoid arthritis in remission. Patient stable. 4. Paroxysmal atrial fibrillation, as mentioned earlier. 5. Carcinoid tumor status post surgery without carcinoid syndrome symptoms. 6. Cancer of the stomach, now with a lesion between the stomach and the pancreas, the details of which is not known. 7. Permanent pacemaker placement. PLAN: 1. We will continue the patient on flecainide and Toprol. 2. The patient will follow up with Dr. Corona. 3. The patient is not a candidate for chronic anticoagulation therapy. 4. We will follow with you. TIME SPENT: The patient was seen at around 1:00 p.m. Forty-five minutes were spent on this patient with more than 50% of the time spent on direct patient care. Her medications have been reviewed and adjusted, as discussed with the hospitalist taking care of the patient. Medical decision making is of high complexity. We will follow with you. DICTATING PHYSICIAN: OSMANI SOLO M.D. [id number] Y#: [id number] ID: [id number] JOB#: [id number] ACCT: [id number] cc:OSMANI SOLO M.D. >
[2017-10-04] MEDS: FOLIC ACID 1 MG TABLET PO SCH (10:10)
[2017-10-04] MEDS: METOPROLOL TARTRATE 25 MG TABLET PO SCH (10:10)
[2017-10-04] MEDS: FUROSEMIDE 40 MG TABLET PO SCH ×2 (10:10→18:09)
[2017-10-04] MEDS: FLECAINIDE ACETATE 100 MG TABLET PO SCH ×2 (10:10→22:02)
--- NOTE | 2017-10-04 12:04 | RADIOLOGY REPORT (SQ) ---
EXAM DESCRIPTION: VENOUS BILATERAL LOWER COMPLETED DATE/TIME: 10/04/2017 11:57 am REASON FOR STUDY: Leg edema I50.31 ACUTE DIASTOLIC (CONGESTIVE) HEART FAILURE COMPARISON: None. TECHNIQUE: Dynamic and static martinez scale and color images acquired of both lower extremity venous sy stems. Selected spectral images acquired with additional compression and augmentation maneuvers. Imag es stored on PACS. LIMITATIONS: None. FINDINGS: RIGHT LEG COMMON FEMORAL AND FEMORAL: Normal phasicity, compression and augmentation. No visualized echogenic m aterial on martinez scale. No defects on color images. POPLITEAL: Normal compression and augmentation. No visualized echogenic material on martinez scale. No de fects on color images. CALF VESSELS: Normal compression and augmentation. No visualized echogenic material on martinez scale. No defects on color image. GSV AND SSV: Normal compression. No visualized echogenic material on martinez scale. No defects on color images. ANY DEEP VENOUS INSUFFICIENCY: Not evaluated. ANY EVIDENCE OF POPLITEAL CYST: No. OTHER: No other significant finding. LEFT LEG COMMON FEMORAL AND FEMORAL: Normal phasicity, compression and augmentation. No visualized echogenic m aterial on martinez scale. No defects on color images. POPLITEAL: Normal compression and augmentation. No visualized echogenic material on martinez scale. No de fects on color images. CALF VESSELS: Normal compression and augmentation. No visualized echogenic material on martinez scale. No defects on color images. GSV AND SSV: Normal compression. No visualized echogenic material on martinez scale. No defects on color images. ANY DEEP VENOUS INSUFFICIENCY: Not evaluated. ANY EVIDENCE POPLITEAL CYST: No. OTHER: No other significant finding. IMPRESSION: NO EVIDENCE DVT OR SVT IN EITHER LEG. TECHNICAL DOCUMENTATION: JOB ID: [id number] [employer]- All Rights Reserved
--- NOTE | 2017-10-04 13:09 | PDOC PROGRESS REPORT ---
Subjective Progress Note for:: 10/04/17 Subjective:: Per Dr. Manzanares summary - "patient was transferred to [facility] [place]. She received a dose of digoxin last night as well as continued scheduled p.o. doses of metoprolol. The patient heart rate came down nicely with the range from 70-90. Unfortunately she did not convert to sinus rhythm and still remains in atrial fibrillation. Her pacemaker seems to be capturing now. I spoke with Aria Jessa, nurse practitioner who works with Dr. Karis Corona, EP bottom sprayer. The patient usually follows with Dr. Corona and apparently has been on sotalol, flecainide, metoprolol in the past. Metoprolol and flecainide were last used and discontinued in January 2017. At the time the reason listed is because of spastic colon. Dr. Corona did not seem to feel that this was likely the cause of the patient's spastic colon, but they did discontinue it in order to try and see if the patient would get any relief. The plan moving forward with that if she went back into rapid A. fib flecainide would be resumed. Her last known dose was 50 mg p.o. twice daily. The patient's pacemaker is [employer]. She states that she had a pacemaker interrogation September 20. However, Ms. Germain does not see any record of that. She readily admits that that does not mean it did not happen. She does note however that there is not any appointment that was seen in the system. At any rate we will have [employer] come and interrogate her device. Dr. Soto has been consulted in this case and this information has been shared with him. I also made the patient aware that I did get in contact with Dr. Corona office.I spoke with Dr. Karis Corona. She called to let me know that Ms. Abdi definitely was on flecainide before. Ms. Abdi prefers not to be on any medications at all if she can avoid it. She had complaints about spastic colon and generalized fatigue and malaise while on the medications. It was subsequently noted that the patient actually had carcinoid tumor that was likely causing the symptoms. Nevertheless the medications were held. The patient was cautioned that her symptoms would likely return and that an option would be ablation. Having the ablation would make her completely pacer dependent. The patient had decided against this. Dr. Corona recommended continuing the flecainide at the current dose of 50 twice a day and metoprolol once a day with discontinuation of the digoxin. Dr. Soto agreed that the patient does not need to remain on the digoxin. These changes were made." Dr. Khan also involved and confirms she is largely pacer dependent at this point and agrees with the use of flecainide for rate control. He reports she is not a candidate for anticoagulation due to prior massive GI bleed related to recurrent GI mass currently under evaluation by oncology as an outpatient. She reports to me a recurrence of her chronic abdominal pain this morning described as crampy lower abdominal pain without exacerbating or alleviating factors. She reports bowel movement yesterday that was normal in color content in character. She denies nausea or vomiting. She denies chest pain, palpitations, fever, chills. ROS: All systems reviewed, see above, remaining systems negative. Reason For Visit: CHF EXACERBATION; AFIB WITH RVR Physical Exam Vital Signs: Temp Pulse Resp BP Pulse Ox 97.8 F 76 21 H 138/56 H 95 10/04/17 11:52 10/04/17 11:52 10/04/17 11:52 10/04/17 11:52 10/04/17 11:52 Intake & Output 10/03/17 10/04/17 10/05/17 06:59 06:59 06:59 Intake Total 2514 1350 275 Output Total 5900 1500 Balance -3386 -150 275 Weight 61.5 kg 61.7 kg General: Well-developed, well-nourished, elderly female sitting upright bed in no acute distress eating breakfast when I arrived. HEENT: Normocephalic, atraumatic, oral mucosa moist, neck muscles supple. Respiratory: Clear to auscultation bilaterally without accessory muscle use. Cardiac: A paced and regular on the monitor, soft 2/6 holosystolic murmur heard best at the right second intercostal space. Abdomen: Soft, nontender, nondistended with bowel sounds present throughout; no tympany Extremities: Trace edema at the ankles markedly improved from what was described as 2+ edema by the patient on presentation. Muscle tone is normal and strength is 5 out of 5 in the upper and lower muscle groups. Skin: Warm and dry, affect no jaundice Psych: Mood depressed, affect appropriate Results Laboratory Results: 10/02/17 04:43 10/02/17 04:43 Impressions: Chest X-Ray 10/01/17 14:47 IMPRESSION: Fluid overload or congestive failure with pulmonary vascular congestion, interstitial edema and trace bilateral pleural effusions Venous Doppler Study 10/04/17 00:00 IMPRESSION: NO EVIDENCE DVT OR SVT IN EITHER LEG. Status: Imported from PACS Assessment & Plan - Diagnosis (1) Acute exacerbation of CHF (congestive heart failure) Qualifiers: Congestive heart failure type: combined Qualified Code(s): I50.43 - Acute on chronic combined systolic (congestive) and diastolic (congestive) heart failure Is this a current diagnosis for this admission?: Yes Plan: She is down 3.4 L fluid in the last 24 hours. Continue gentle diuresis. Increase activity. Case discussed with Dr. Day and he reports the echocardiogram shows well-preserved ejection fraction is 70% (2) Carcinoid tumor Is this a current diagnosis for this admission?: Yes Plan: Recurrent and currently under investigation management by oncology as an outpatient. Reportedly due for repeat PET CT scan as an outpatient. (3) Chronic atrial fibrillation Is this a current diagnosis for this admission?: Yes Plan: Recurrent A. fib with RVR likely due to medication noncompliance, she is supposed to be on flecainide and refused previously. Rate is now controlled on both flecainide and metoprolol. She is not a candidate for anticoagulation due to history of massive GI bleed and recurrent GI tumor. (4) Hyponatremia Is this a current diagnosis for this admission?: Yes Plan: Mild and likely secondary to the above. Stable. - Time Time Spent with patient: 35 or more minutes Medications reviewed and adjusted accordingly: Yes Anticipated discharge: Home Within: within 24 hours
--- NOTE | 2017-10-04 21:38 | PROGRESS NOTE E ---
Progress Note NAME: BARTOLO DANIEL : 1930 AGE: 86Y DATE: 10/04/2017 ROOM: 330 SUBJECTIVE: The patient remains in an atrial paced rhythm with ventricular capture. She has no GI bleed. There is no PND or orthopnea but the patient states that she feels short of breath walking just inside the room. There is no wheezing. There is no cough or sputum production. There are no anginal symptoms. There is no leg edema today. There are no TIA or CVA symptoms. There is no syncope or near syncope. OBJECTIVE: GENERAL: On examination, the patient is well built and appears to be well nourished, in no acute distress. VITAL SIGNS: Temperature is 97.8 degrees Fahrenheit, pulse is 76 beats per minute, atrial paced rhythm with ventricular capture, blood pressure is 138/56, respirations are 21 per minute, O2 saturations are 95% on room air. HEAD: Atraumatic, normocephalic. EYES: Pupils are equal, round, regular, and reactive to light and accommodation. Extraocular movements are normal. There is no conjunctival pallor. There is no scleral icterus. EARS, NOSE, THROAT: Negative. NECK: Supple. There is no JVD. Carotids are equal. There is no bruit. There is no goiter. There is no lymphadenopathy. Trachea central. LUNGS: Clear to auscultation and percussion. There is slightly diminished air entry and slightly prolonged expiration without any rhonchi, rales or wheezing. HEART: S1 and S2 are heard. There is no S3 gallop. There is no S4 gallop. There is a systolic murmur in the left sternal border on the apex. There is no rub. ABDOMEN: Soft, nontender. There is no hepatosplenomegaly. Bowel sounds are well heard. There are no tender areas or masses. EXTREMITIES: Femorals are slightly diminished. There are no femoral bruits. Leg pulses are diminished. There is no pedal edema. There is no DVT or cellulitis. There is cyanosis or clubbing. Leg pulses are well felt. CENTRAL NERVOUS SYSTEM: The patient is conscious, awake, alert, oriented x3 with no focal deficit. PSYCHIATRIC: The patient's judgment and insight are intact. Her affect is normal. INTAKE/OUTPUT: The patient's 24-hour intake is 1350 mL. Output is 1500 mL. DIAGNOSTIC STUDIES: The patient had a venous Doppler study which did not show any SVT or DVT. IMPRESSION: 1. Most likely, heart failure with leg edema, now resolved. 2. 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 3. Recurrent atrial fibrillation, now converted to atrial paced rhythm with ventricular capture. 4. Rheumatoid arthritis in remission, patient stable. 5. Paroxysmal atrial fibrillation, as mentioned earlier. 6. 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 7. 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 She says that the last imaging study showed that there was a lesion between the stomach and the pancreas. 8. Permanent pacemaker placement. RECOMMENDATION: 1. Continue flecainide. 2. Continue Toprol XL. 3. Patient to follow up with Dr. Corona, EP restaurant assistant from [facility]. I have spoken to Dr. Crisostomo, the oncologist who will be seeing the patient and she has arranged for the patient to have an outpatient PET scan and CT scan of the abdomen in the near future. TIME SPENT: About 35 minutes with more than 50% of the time spent on direct patient care. Her medications have been reviewed. Decision making is of moderate to high complexity. Note that the patient is not a candidate for chronic anticoagulation. This has been discussed with the patient and with the attending physician on the case. We will follow with you. DICTATING PHYSICIAN: OSMANI SOLO M.D. [id number] MIKEL#: [id number] ID: [id number] JOB#: [id number] ACCT: [id number] cc: >
--- NOTE | 2017-10-05 09:49 | RADIOLOGY REPORT (SQ) ---
EXAM DESCRIPTION: CHEST SINGLE VIEW COMPLETED DATE/TIME: 10/05/2017 9:37 am REASON FOR STUDY: dyspnea COMPARISON: AP chest 02/11/2014 Two-view chest 10/01/2017 PET-CT 02/24/2017 CT chest 02/12/2014 EXAM PARAMETERS: NUMBER OF VIEWS: One view. TECHNIQUE: Single frontal radiographic view of the chest acquired. RADIATION DOSE: NA LIMITATIONS: None. FINDINGS: LUNGS AND PLEURA: Mild chronic increased interstitial markings throughout the periphery of both lungs. This could represent minimal interstitial edema No acute infiltrates. No pleural effusion. No pneumothorax. MEDIASTINUM AND HILAR STRUCTURES: No masses. Contour normal. HEART AND VASCULAR STRUCTURES: Stable mild cardiomegaly BONES: No acute findings. HARDWARE: Left-sided dual lead pacemaker OTHER: No other significant finding. IMPRESSION: Cardiomegaly and pacemaker. Minimal increased interstitial markings in the lungs, question interstitial edema. TECHNICAL DOCUMENTATION: JOB ID: [id number] [employer]- All Rights Reserved
[2017-10-05] MEDS: METOPROLOL TARTRATE 25 MG TABLET PO SCH (10:14)
[2017-10-05] MEDS: FLECAINIDE ACETATE 100 MG TABLET PO SCH (10:14)
[2017-10-05] MEDS: FUROSEMIDE 40 MG TABLET PO SCH (10:15)
[2017-10-05] MEDS: FOLIC ACID 1 MG TABLET PO SCH (10:15)
[2017-10-05 13:55] VITALS: BP 145/99
--- NOTE | 2017-10-05 17:33 | PDOC DISCHARGE SUMMARY ---
General - Admit/Disc Date/PCP Admission Date/Primary Care Provider: 10/01/17 18:02 JOSE LUIS BARBER MD Discharge Date: 10/05/17 - Discharge Diagnosis (1) Acute exacerbation of CHF (congestive heart failure) Is this a current diagnosis for this admission?: Yes Summary: Likely secondary to rapid ventricular response to the atrial fibrillation; markedly improved back to baseline. (2) Carcinoid tumor Is this a current diagnosis for this admission?: Yes Summary: Follow up with oncology as already scheduled for early October. Instructed to keep that appointment. (3) Chronic atrial fibrillation Is this a current diagnosis for this admission?: Yes Summary: Found to have rapid ventricular response on admission likely secondary to medication noncompliance. The patient reports that her firmware architect told her to stop taking flecainide and metoprolol because she did not like the way those medications made her feel. However Dr. Manzanares spoke with Dr. Corona and confirmed she is indeed supposed to continue taking his medications and has a habit of medication noncompliance. Her rate is significantly better controlled on current regimen and prescriptions were provided for those medications. (4) Hyponatremia Is this a current diagnosis for this admission?: Yes Summary: Very mild chronic and likely related to her carcinoid tumor. Sodium 136 on October 02. - Additional Information Resuscitation Status: Full Code Discharge Diet: Cardiac Discharge Activity: Activity As Tolerated, Balance Activity w/Rest, Weigh Daily Prescriptions: Flecainide Acetate [Tambocor 100 mg Tablet] 50 mg PO Q12 #60 tablet Furosemide [Lasix 40 mg Tablet] 40 mg PO QAM #30 tablet Metoprolol Tartrate [Lopressor 25 mg Tablet] 25 mg PO DAILY #30 tablet Home Medications: Ergocalciferol (Vitamin D2) [Drisdol 50,000 unit (1.25MG) Capsule] 50,000 unit PO .[id number] 10/01/17 Folic Acid [Folvite 1 mg Tablet] 1 mg PO DAILY 10/01/17 Methotrexate Sodium [Methotrexate] 2.5 mg PO MOTU@1000,1800 10/01/17 Flecainide Acetate [Tambocor 100 mg Tablet] 50 mg PO Q12 #60 tablet 10/05/17 Furosemide [Lasix 40 mg Tablet] 40 mg PO QAM #30 tablet 10/05/17 Metoprolol Tartrate [Lopressor 25 mg Tablet] 25 mg PO DAILY #30 tablet 10/05/17 History of Present Illness Patient complains of: Weakness and swelling of her ankles. History of Present Illness: BARTOLO ABDI is a [address] Manzanares summary - "patient was transferred to [facility]. She received a dose of digoxin last night as well as continued scheduled p.o. doses of metoprolol. The patient heart rate came down nicely with the range from 70-90. Unfortunately she did not convert to sinus rhythm and still remains in atrial fibrillation. Her pacemaker seems to be capturing now. I spoke with Aria Jessa, nurse practitioner who works with Dr. Karis Corona, EP firmware architect. The patient usually follows with Dr. Corona and apparently has been on sotalol, flecainide, metoprolol in the past. Metoprolol and flecainide were last used and discontinued in January 2017. At the time the reason listed is because of spastic colon. Dr. Corona did not seem to feel that this was likely the cause of the patient's spastic colon, but they did discontinue it in order to try and see if the patient would get any relief. The plan moving forward with that if she went back into rapid A. fib flecainide would be resumed. Her last known dose was 50 mg p.o. twice daily. The patient's pacemaker is [employer]. She states that she had a pacemaker interrogation September 20. However, Ms. Germain does not see any record of that. She readily admits that that does not mean it did not happen. She does note however that there is not any appointment that was seen in the system. At any rate we will have [employer] come and interrogate her device. Dr. Soto has been consulted in this case and this information has been shared with him. I also made the patient aware that I did get in contact with Dr. Corona office.I spoke with Dr. Karis Corona. She called to let me know that Ms. Abdi definitely was on flecainide before. Ms. Abdi prefers not to be on any medications at all if she can avoid it. She had complaints about spastic colon and generalized fatigue and malaise while on the medications. It was subsequently noted that the patient actually had carcinoid tumor that was likely causing the symptoms. Nevertheless the medications were held. The patient was cautioned that her symptoms would likely return and that an option would be ablation. Having the ablation would make her completely pacer dependent. The patient had decided against this. Dr. Corona recommended continuing the flecainide at the current dose of 50 twice a day and metoprolol once a day with discontinuation of the digoxin. Dr. Soto agreed that the patient does not need to remain on the digoxin. These changes were made." Hospital Course Hospital Course: Dr. Bone also involved and confirms she is largely pacer dependent at this point and agrees with the use of flecainide for rate control. He reports she is not a candidate for anticoagulation due to prior massive GI bleed related to recurrent GI mass currently under evaluation by oncology as an outpatient. Once her medications were resumed with good good control of her response. She diuresed nicely with no adverse effects on renal function or electrolytes. She has resolution of the lower extremity swelling and marked improvement in her respiratory distress. Repeat chest x-ray this morning shows only some mild persistent interstitial edema markedly improved from chest x-ray of just a few days ago. She continues to complain of malaise and fatigue which I suspect are secondary to reinitiation of her medications and control blood pressure and heart rate. I reassured her that the symptoms should improve over the next couple weeks as her body readjust to the medications, the metoprolol in particular. She was instructed to contact Dr. Corona for first available appointment and follow-up and continued management of her atrial fibrillation and blood pressure. At this point she has met maximum medical benefit for inpatient hospital stay and can safely transition home to continue treatment as an outpatient. Physical Exam Vital Signs: Temp Pulse Resp BP Pulse Ox 97.4 F 70 16 145/99 H 97 10/05/17 14:01 10/05/17 14:01 10/05/17 14:01 10/05/17 14:01 10/05/17 14:01 Intake & Output 10/04/17 10/05/17 10/06/17 06:59 06:59 06:59 Intake Total 1350 864 360 Output Total 1500 600 Balance -150 264 360 Weight 61.7 kg 61.7 kg General appearance: PRESENT: no acute distress, well-developed, well-nourished Neck exam: PRESENT: full ROM. ABSENT: JVD Respiratory exam: PRESENT: clear to auscultation ciera, unlabored. ABSENT: accessory muscle use Cardiovascular exam: PRESENT: RRR. ABSENT: systolic murmur, tachycardia Extremities exam: ABSENT: pedal edema Neurological exam: PRESENT: alert, awake, oriented to person, oriented to place , oriented to time, oriented to situation Psychiatric exam: PRESENT: appropriate affect, normal mood Skin exam: PRESENT: dry, warm Results Laboratory Results: 10/02/17 04:43 10/02/17 04:43 Impressions: Venous Doppler Study 10/04/17 00:00 IMPRESSION: NO EVIDENCE DVT OR SVT IN EITHER LEG. Chest X-Ray 10/05/17 08:54 IMPRESSION: Cardiomegaly and pacemaker. Minimal increased interstitial markings in the lungs, question interstitial edema. Qualifiers PATEINT BEING DISCHARGED WITH ANY OF THE FOLLOWING DIAGNOSIS?: No VTE patient discharged on overlapping Therapy?: No Reason(s) for not prescribing Overlap Therapy:: Not indicated Plan Discharge Plan: Follow-up as instructed; return to the emergency department for worsening symptoms. Time Spent: Greater than 30 Minutes
--- NOTE | 2017-10-05 20:38 | PROGRESS NOTE E ---
Progress Note NAME: BARTOLO DANIEL : 1930 AGE: 86Y DATE: 10/05/2017 ROOM: 421 SUBJECTIVE: The patient denies any chest pain or discomfort. There are no palpitations. She has no PND, orthopnea. The shortness of breath has improved. There is no shortness of breath at rest or when she walks around in the room. There is no wheezing. There is no cough. There is no PND, orthopnea or leg edema. There are no TIA or CVA symptoms. OBJECTIVE: GENERAL: On examination, the patient is well built and appears to be well nourished, in no acute distress. VITAL SIGNS: She is afebrile with a temperature of 97.4 degrees Fahrenheit, pulse is 70 beats per minute, blood pressure 107/44, respirations are 16 per minute, O2 saturations are 97% on room air. HEAD: Atraumatic, normocephalic. EYES: Pupils are equal, round, regular, and reactive to light and accommodation. Extraocular movements are normal. There is no conjunctival pallor. There is no scleral icterus. EARS, NOSE, THROAT: Negative. NECK: Supple. There is no JVD. Carotids are equal. There is no bruit. There is no lymphadenopathy. Trachea central. LUNGS: Clear to auscultation and percussion. There is slightly diminished air entry and slightly prolonged expiration without any rhonchi, rales or wheezing. HEART: S1 and S2 are heard. There is no S3 gallop. There is no S4 gallop. There is a systolic murmur in the left sternal border on the apex. There is no rub. ABDOMEN: Soft, nontender. There is no hepatosplenomegaly. Bowel sounds are well heard. There are no tender areas or masses. EXTREMITIES: Femorals are slightly diminished. There are no femoral bruits. Leg pulses are diminished. There is no pedal edema. There is no DVT or cellulitis. There is no cyanosis or clubbing. Leg pulses are well felt. CENTRAL NERVOUS SYSTEM: The patient is conscious, awake, alert, oriented x3 with no focal deficit. PSYCHIATRIC: The patient's judgment and insight are intact. Her affect is normal. DIAGNOSTIC STUDIES: The patient's chest x-ray is read as minimally increased interstitial markings in the lungs. Most likely, this is chronic and does not represent acute pulmonary edema. IMPRESSION: 1. Most likely heart failure with leg edema, now resolved, ? etiology. The patient's left ventricular ejection fraction seems to be normal and there is no significant pulmonary hypertension in spite of the echo being limited. Hence forth, *------* related to atrial fibrillation. 2. Shortness of breath, most likely related to COPD caused by secondhand smoke exposure, now much improved. 3. Recurrent atrial fibrillation, now converted to atrial paced rhythm with ventricular capture. 4. Rheumatoid arthritis, in remission. Patient is stable. 5. Paroxysmal atrial fibrillation, as mentioned earlier. 6. History of carcinoid tumor status post surgery x2. 7. Recurrence of mass in stomach found to be stomach cancer. The patient will be evaluated as an outpatient by Hematology/Oncology. 6. Permanent pacemaker placement. RECOMMENDATIONS: 1. Continue flecainide. 2. Continue Toprol. 3. The patient is not a candidate for chronic anticoagulation. 4. Would recommend patient follow up with her EP hris analyst. The patient is stable. 5. Medications have been reviewed. 6. We will sign off the case. TIME SPENT: Thirty minutes spent on this patient with more than 50% of the time spent on direct patient care and also review of the patient's medications. Note, at present medical decision making is of moderate complexity. We will sign off. DICTATING PHYSICIAN: OSMANI SOLO M.D. [id number] CALLIEY#: [id number] ID: [id number] JOB#: [id number] ACCT: [id number] cc: >
== END 2017-10-05 14:55 | disposition home health service (06) | DRG 292 ==
LOC: ER 12:47 → UNDOADMOB 16:30 → EH 16:30 → 4S 17:55 → INTOOBSV 18:02 → 4S 18:02 → EH 18:02 → OBSVTOIN 18:02 → 3S 10-02 20:44 → 4W 10-05 04:16
PROVIDERS: ADMIT Hospitalist; ATTEND Hospitalist
DX: I50.43 Acute on chronic combined systolic (congestive) and diastolic (congestive) heart failure (principal); E87.1 Hypo-osmolality and hyponatremia; C7A.098 Malignant carcinoid tumors of other sites; I48.2 Chronic atrial fibrillation; R06.00 Dyspnea, unspecified; E78.00 Pure hypercholesterolemia, unspecified; R04.0 Epistaxis; M06.9 Rheumatoid arthritis, unspecified; M79.7 Fibromyalgia; R09.02 Hypoxemia; Z79.899 Other long term (current) drug therapy; Z95.0 Presence of cardiac pacemaker; Z90.3 Acquired absence of stomach [part of]; Z80.3 Family history of malignant neoplasm of breast; Z80.0 Family history of malignant neoplasm of digestive organs; Z85.020 Personal history of malignant carcinoid tumor of stomach; Z91.14 Patient's other noncompliance with medication regimen
CPT/HCPCS: 36415; 71010; 71020; 80048; 80053; 80162; 81001; 82550; 82553; 83735; 83880; 84484; 85025; 93005; 93010; 93306; 93970; 99285; J1160; J1940; J3490